=== PATIENT | female | born 1990 | race Caucasian/White ===

== ENCOUNTER 2019-06-25 08:34 | Day surgery (SDC) | payer OTHER ==
[~2019-06-25] VITALS: Ht 165.1 cm; Wt 78.9 kg
[~2019-06-25 08:34] MED LIST: HYDROmorphone 2 MG/ML VIAL IV PRN; IV RINGERS,LACTATED 1000ML 1,000 ML IV SCH; MORPHINE SULFATE 2 MG/ML VIAL. IV PRN; ONDANSETRON PF 4 MG/2 ML VIAL. IV PRN; PROCHLORPERAZINE 10 MG/2 ML VIAL. IV PRN; SERT100T PO; SILVER NITRATE STICK TP ONE; ceFAZolin SODIUM IV Push 1 GM VIAL. IVP PRN; fentaNYL PF VIAL 100 MCG/2 ML VIAL IV PRN
[2019-06-25] MEDS ORDERED: PROPOFOL 20 ML IV ONE (09:19)
[2019-06-25] MEDS ORDERED: fentaNYL PF VIAL 100 MCG/2 ML VIAL ONE (09:19)
[2019-06-25] MEDS ORDERED: DEXAMETHASONE SOD PHOS 4 MG/ML VIAL ONE (09:20)
[2019-06-25] MEDS ORDERED: ONDANSETRON PF 4 MG/2 ML VIAL. ONE (09:20)
[2019-06-25] MEDS ORDERED: FAMOTIDINE 20 MG/2 ML VIAL ONE (09:20)
[2019-06-25] MEDS ORDERED: LIDOCAINE 1%/EPI 1:100,000 20 ML VIAL. ONE (09:46)
[2019-06-25] MEDS ORDERED: ceFAZolin SODIUM IV Push 1 GM VIAL. IVP ONE (10:00)
[2019-06-25] MEDS ORDERED: SEVOFLURANE 31 TO 60 MINUTES. IH ONE (10:01)
[2019-06-25] MEDS ORDERED: LIDOCAINE 1%/EPI 1:100,000 20 ML VIAL. INJ ONE (10:04)
--- NOTE | 2019-06-25 10:13 | PDOC ---
BRIEF OPERATIVE NOTE Date: Jun 25, 2019 Pre-Op Diagnosis Bartholin Duct Cyst, Right Post-Op Diagnosis Same Procedure Performed Marsupialization Surgeon Dr. Castro Anesthesia Type: General Blood Loss 10 ml Specimens Obtained none Findings Bartholin Duct Cyst, Right Complications none Operative Note see dictation CHRIST CASTRO Jr, MD Jun 25, 2019 10:13
--- NOTE | 2019-06-25 10:15 | DISCH ---
DISCHARGE INSTRUCTIONS Condition on Discharge Condition on Discharge: Stable Activity After Discharge Activity Instructions for Disc: Activity as tolerated Lifting Instructions after Dis: No heavy lifting Driving Instructions after Dis: Do not drive today Diet after Discharge Diet after Discharge: Regular Contacting the [facility] after DC Call your doctor for: Concerns you may have Follow-Up Follow up with: Dr. Castro in 1 week. CHRIST CASTRO Jr, MD Jun 25, 2019 10:15
--- NOTE | 2019-06-25 10:24 | OP ---
DATE OF SURGERY: 06/25/2019 PREOPERATIVE DIAGNOSIS: Bartholin duct cyst on the right. POSTOPERATIVE DIAGNOSIS: Bartholin duct cyst on the right. PROCEDURE: Marsupialization. SURGEON: Ross Castro MD ANESTHESIA: GETA. ESTIMATED BLOOD LOSS: 10 mL. COMPLICATIONS: None. FINDINGS: Bartholin duct cyst on the right side 3-4 cm size, which had grown since clinic visit. SUMMARY: A 29-year-old with Bartholin duct cyst that was unresolving and was continued to grow in size as well as tenderness. The patient was counseled on risks, benefits and expectations of marsupialization and voiced clear understanding to proceed. DESCRIPTION OF PROCEDURE: The patient was taken to surgery suite and placed in dorsal lithotomy position. She was prepped with Betadine solution and draped in sterile fashion. After adequate anesthesia, weighted speculum was placed vaginally. The Bartholin duct cyst was identified. A 1% lidocaine with epinephrine was injected at the superior pole of the Bartholin duct cyst. Vertical incision with scalpel was made down to and through the capsule. There was no purulent and dark blood. Removal of the contents of the Bartholin duct cyst itself was irrigated out with normal saline. The marsupialization took place in which the capsule wall was sutured to the labia in an interrupted fashion using 3-0 chromic suture. The area was hemostatic. Vaseline gauze was placed over the area. Weighted speculum was removed. The patient tolerated the procedure well and was taken to recovery room in stable condition. Sponge and needle count correct x 3. ROSS CSATRO MD DR: VIOLETA/kacie JOB#: [id number] / [id number]
[2019-06-25] MEDS ORDERED: OXYC-325 PO (10:30)
[2019-06-25] MEDS ORDERED: oxyCODONE/APAP 5/325 1 TAB TABLET PO ONE ×2 (10:45)
[2019-06-25 11:15] VITALS: BP 108/86
== END 2019-06-25 11:48 | disposition home or self-care (01) ==
LOC: SURG 08:34
PROVIDERS: ATTEND Obstetrics & Gynecology
DX: N75.0 Cyst of Bartholin's gland (principal); Z79.899 Other long term (current) drug therapy
CPT/HCPCS: 56440; 81025; J0690; J1100; J2405; J2704; J3010; J3490